=== PATIENT | male | born 1945 | race Two or more races ===

== ENCOUNTER 2024-02-18 11:04 | Inpatient (IN) | payer MEDICARE, OTHER ==
[~2024-02-18] VITALS: Ht 162.6 cm; Wt 58.1 kg
[2024-02-18] MEDS ORDERED: TDAP [DIPH/PERTUSSIS/TET] 0.5 ML VIAL IM ONE (11:37)
[2024-02-18] MEDS: TDAP [DIPH/PERTUSSIS/TET] 0.5 ML VIAL IM ONE (11:55)
[2024-02-18 12:10] LABS: BASOPHILS % (AUTO) 0.3 % (0.0-2.0); EOSINOPHILS % (AUTO) 0.5 % (0.0-6.0); HEMATOCRIT 38 % (39-51); HEMOGLOBIN 12.6 g/dL (13.5-17.5); LYMPHOCYTES # (AUTO) 1.1 K/uL (0.8-4.8); LYMPHOCYTES % (AUTO) 13.6 % (20.0-44.0); MEAN CORPUSCULAR HEMOGLOBIN 31 PG (26.0-33.0); MEAN CORPUSCULAR HGB CONC 33 g/dl (31.0-36.0); MEAN CORPUSCULAR VOLUME 92 fL (80-96); MONOCYTES # (AUTO) 0.6 K/uL (0.1-1.30); MONOCYTES % (AUTO) 7.4 % (2.0-12.0); NEUTROPHILS # (AUTO) 6.6 K/uL (1.8-8.9); NEUTROPHILS % (AUTO) 78.2 % (43.0-81.0); PLATELET COUNT (AUTO) 227 K/uL (150-450); RED BLOOD CELL COUNT(AUTO) 4.11 MIL/uL (4.5-6.0); WHITE BLOOD COUNT (AUTO) 8.4 K/uL (4.3-11.0)
[2024-02-18 12:22] LABS: INR 0.97 (0.91-1.10); PARTIAL THROMBOPLASTIN TIME 24.6 SEC (24.3-34.3)
[2024-02-18 12:24] LABS: ALANINE AMINOTRANSFERASE 24 U/L (12-78); ALBUMIN 2.4 g/dL (3.4-5.0); ALKALINE PHOSPHATASE 118 U/L (46-116); ASPARTATE AMINOTRANSFERASE 17 U/L (15-37); BILIRUBIN,DIRECT 0.2 mg/dL (0.0-0.2); BILIRUBIN,TOTAL 0.6 mg/dL (0.2-1.0); CALCIUM, SERUM 8.3 mg/dL (8.5-10.1); CARBON DIOXIDE 26 mmol/L (21-32); CHLORIDE 103 mmol/L (98-107); GLUCOSE 377 mg/dL (74-106); LIPASE 14 U/L (16-77); POTASSIUM 5.2 mmol/L (3.5-5.1); SODIUM SERUM 133 mmol/L (136-145); TOTAL PROTEIN, SERUM 6.1 g/dL (6.4-8.2); UREA NITROGEN, BLOOD 10 mg/dL (7-18)
[2024-02-18] MEDS ORDERED: HYDR-4077 PO (13:03)
[2024-02-18] MEDS ORDERED: SEMA0.25 SQ (13:03)
[2024-02-18] MEDS ORDERED: AMLO-213 PO (13:03)
[2024-02-18] MEDS ORDERED: HYDR-3976 MT (13:03)
[2024-02-18] MEDS ORDERED: GLIM1TAB18 PO (13:03)
[2024-02-18] MEDS ORDERED: TAMS-12 PO (13:03)
[2024-02-18] MEDS ORDERED: ALBU18HF2 IH (13:03)
[2024-02-18] MEDS ORDERED: METF-442 PO (13:03)
[2024-02-18] MEDS ORDERED: BENA20TA9 PO (13:03)
[2024-02-18] MEDS ORDERED: OXYB10TA30 PO (13:03)
[2024-02-18] MEDS ORDERED: OMEP40CA21 PO (13:03)
[2024-02-18] MEDS ORDERED: ROSU5TAB13 PO (13:03)
[2024-02-18] MEDS ORDERED: MAGNESIUM HYDROXIDE 30 ML UDC PO PRN (15:00)
[2024-02-18] MEDS ORDERED: DEXTROSE 50%-WATER 50 ML DISP.SYRIN IV PRN (15:00)
[2024-02-18] MEDS ORDERED: ONDANSETRON HCL/PF 4 MG/2 ML VIAL IVP PRN (15:00)
[2024-02-18] MEDS ORDERED: Z GUARD REMEDY 4 OZ OINT TP PRN (15:00)
[2024-02-18] MEDS ORDERED: ACETAMINOPHEN 325 MG TABLET PO PRN (15:00)
[2024-02-18 15:14] VITALS: BP 116/65; TEMP 97.8; O2SAT 96
[2024-02-18] MEDS: NICOTINE PATCH (14MG) 14 MG PATCH.TD24 TD SCH (15:38)
[2024-02-18] MEDS: LEVOFLOXACIN (250MG) 250 MG TABLET PO SCH (15:39)
[2024-02-18] MEDS: ENOXAPARIN SODIUM 40 MG/0.4 ML DISP.SYRIN SQ SCH (15:41)
[2024-02-18 15:52] LABS: THYROID STIMULATING HORMONE 0.967 uIU/mL (0.358-3.74)
[2024-02-18 16:00] VITALS: BP 153/74; TEMP 97.8; O2SAT 96
[2024-02-18] MEDS: IV NS 0.9% 1,000 ML BAG IV PRN (16:50)
[2024-02-18] MEDS: INSULIN REGULAR, HUMAN 100 UNIT/ML 3 ML VIAL SQ PRN (17:23)
[2024-02-18] MEDS: BLOOD SUGAR DIAGNOSTIC 1 EACH STRIP IN SCH (17:24)
[2024-02-18 20:00] VITALS: BP 114/61; TEMP 98.2; O2SAT 99
[2024-02-19] VITALS: BP 135/68; TEMP 98; O2SAT 99
[2024-02-19 04:00] VITALS: BP 136/65; TEMP 98.3; O2SAT 99
[2024-02-19] MEDS: IV NS 0.9% 1,000 ML IV PRN (04:34)
[2024-02-19 07:09] LABS: BASOPHILS % (AUTO) 0.4 % (0.0-2.0); EOSINOPHILS # (AUTO) 0.1 K/uL (0.0-0.7); EOSINOPHILS % (AUTO) 1.5 % (0.0-6.0); HEMATOCRIT 33 % (39-51); HEMOGLOBIN 11.4 g/dL (13.5-17.5); LYMPHOCYTES # (AUTO) 2.1 K/uL (0.8-4.8); LYMPHOCYTES % (AUTO) 25.7 % (20.0-44.0); MEAN CORPUSCULAR HEMOGLOBIN 32 PG (26.0-33.0); MEAN CORPUSCULAR HGB CONC 35 g/dl (31.0-36.0); MEAN CORPUSCULAR VOLUME 91 fL (80-96); MONOCYTES # (AUTO) 0.8 K/uL (0.1-1.30); MONOCYTES % (AUTO) 9.5 % (2.0-12.0); NEUTROPHILS # (AUTO) 5.2 K/uL (1.8-8.9); NEUTROPHILS % (AUTO) 62.9 % (43.0-81.0); PLATELET COUNT (AUTO) 216 K/uL (150-450); RED BLOOD CELL COUNT(AUTO) 3.59 MIL/uL (4.5-6.0); RED CELL DISTRIBUTION WIDTH 12.9 % (11.5-15.0); WHITE BLOOD COUNT (AUTO) 8.2 K/uL (4.3-11.0)
[2024-02-19 07:29] LABS: ALANINE AMINOTRANSFERASE 18 U/L (12-78); ALBUMIN 1.9 g/dL (3.4-5.0); ALKALINE PHOSPHATASE 105 U/L (46-116); ASPARTATE AMINOTRANSFERASE 19 U/L (15-37); BILIRUBIN,TOTAL 0.4 mg/dL (0.2-1.0); CALCIUM, SERUM 8.6 mg/dL (8.5-10.1); CARBON DIOXIDE 22 mmol/L (21-32); CHLORIDE 104 mmol/L (98-107); CREATININE 0.8 mg/dL (0.6-1.3); GLUCOSE 127 mg/dL (74-106); MAGNESIUM 1.8 mg/dL (1.8-2.4); PHOSPHORUS 3.6 mg/dL (2.5-4.9); POTASSIUM 3.9 mmol/L (3.5-5.1); SODIUM SERUM 135 mmol/L (136-145); TOTAL PROTEIN, SERUM 5.3 g/dL (6.4-8.2); UREA NITROGEN, BLOOD 12 mg/dL (7-18)
[2024-02-19] MEDS: PANTOPRAZOLE 40 MG TABLET.DR PO SCH (07:47)
[2024-02-19 07:49] LABS: IRON, SERUM 55 ug/dl (50-175); TOTAL IRON BINDING CAPACITY 163 ug/dl (250-450)
[2024-02-19 08:00] VITALS: BP 145/73; TEMP 99.1; O2SAT 99
[2024-02-19 08:01] LABS: CHOLESTEROL 98 mg/dL (<200); FERRITIN 157 ng/mL (8-388); HDL CHOLESTEROL 35 mg/dL (40-60); LDL 43 mg/dL (0-99); THYROID STIMULATING HORMONE 1.139 uIU/mL (0.358-3.74); TRIGLYCERIDES 145 mg/dL (30-150)
[2024-02-19] MEDS: ATORVASTATIN 10 MG TABLET PO SCH (08:47)
[2024-02-19] MEDS: AMLODIPINE BESYLATE 10 MG TABLET PO SCH (08:48)
[2024-02-19] MEDS: TAMSULOSIN 0.4 MG CAP.SR.24H PO SCH (08:52)
[2024-02-19] MEDS: OXYBUTYNIN CHLORIDE ER 5 MG TAB PO SCH (08:55)
[2024-02-19] MEDS ORDERED: BENAZEPRIL HCL 20 MG TABLET PO SCH (09:00)
[2024-02-19 12:00] VITALS: BP 152/68; TEMP 98.6; O2SAT 100
[2024-02-19] MEDS ORDERED: LEVO500T90 PO (13:02)
== END 2024-02-19 15:30 | disposition home or self-care (01) | DRG 74 ==
LOC: ER 11:08 → TELE1 13:20
PROVIDERS: ADMIT Nurse Practitioner Family; ATTEND Nurse Practitioner Family
DX: G90.8 Other disorders of autonomic nervous system (principal); E87.1 Hypo-osmolality and hyponatremia; E44.0 Moderate protein-calorie malnutrition; J21.9 Acute bronchiolitis, unspecified; S09.90XA Unspecified injury of head, initial encounter; I25.10 Atherosclerotic heart disease of native coronary artery without angina pectoris; W19.XXXA Unspecified fall, initial encounter; Y92.9 Unspecified place or not applicable; D64.9 Anemia, unspecified; E11.65 Type 2 diabetes mellitus with hyperglycemia; E87.5 Hyperkalemia; E88.09 Other disorders of plasma-protein metabolism, not elsewhere classified; I10 Essential (primary) hypertension; Z79.4 Long term (current) use of insulin; Z79.84 Long term (current) use of oral hypoglycemic drugs; Z95.1 Presence of aortocoronary bypass graft; Z20.822 Contact with and (suspected) exposure to COVID-19; Z71.6 Tobacco abuse counseling; F17.210 Nicotine dependence, cigarettes, uncomplicated; Z68.22 Body mass index [BMI] 22.0-22.9, adult
CPT/HCPCS: 36415; 70450-TC; 71045-TC; 71250-TC; 72125-TC; 80048-TC; 80053-TC; 80061-TC; 80076-TC; 82728-TC; 82962-TC; 83540-TC; 83690-TC; 83735-TC; 84100-TC; 84439-TC; 84443-TC; 84484-TC; 85025-TC; 85730-TC; 90715; 93307-TC; 97112-TC; 97116-TC; 97530-TC; A4223; G0378; J1650; J1815; J7030

== ENCOUNTER 2024-06-30 10:20 | Emergency (ER) | payer MEDICARE, OTHER ==
[~2024-06-30] VITALS: Ht 160 cm; Wt 66.2 kg
[~2024-06-30 10:20] MED LIST: ALBU18HF2 IH; AMLO-213 PO; BENA20TA9 PO; GLIM1TAB18 PO; HYDR-3976 MT; HYDR-4077 PO; LEVO500T90 PO; METF-442 PO; OMEP40CA21 PO; OXYB10TA30 PO; ROSU5TAB13 PO; SEMA0.25 SQ; TAMS-12 PO
[2024-06-30] MEDS ORDERED: methylPREDNISolone SOD SUCC 125 MG/2ML VIAL ONE (11:58)
[2024-06-30] MEDS ORDERED: IPRATROPIUM NEB FS 0.5 MG/2.5 ML AMPUL.NEB ONE (12:01)
[2024-06-30] MEDS ORDERED: ALBUTEROL FS 2.5 MG/3 ML VIAL.NEB ONE (12:01)
[2024-06-30 12:08] VITALS: O2SAT 95
[2024-06-30] MEDS: ALBUTEROL FS 2.5 MG/3 ML VIAL.NEB CONTNEB ONE (12:08)
[2024-06-30] MEDS: IPRATROPIUM NEB FS 0.5 MG/2.5 ML AMPUL.NEB NEB ONE (12:08)
[2024-06-30] MEDS: methylPREDNISolone SOD SUCC 125 MG/2ML VIAL IV ONE (12:12)
[2024-06-30 12:29] VITALS: O2SAT 100
[2024-06-30 12:31] LABS: BASOPHILS # (AUTO) 0.1 K/uL (0.0-0.2); BASOPHILS % (AUTO) 0.4 % (0.0-2.0); EOSINOPHILS # (AUTO) 0.2 K/uL (0.0-0.7); EOSINOPHILS % (AUTO) 1.6 % (0.0-6.0); HEMATOCRIT 37 % (39-51); HEMOGLOBIN 12.6 g/dL (13.5-17.5); LYMPHOCYTES # (AUTO) 2.1 K/uL (0.8-4.8); LYMPHOCYTES % (AUTO) 16.2 % (20.0-44.0); MEAN CORPUSCULAR HEMOGLOBIN 31 PG (26.0-33.0); MEAN CORPUSCULAR HGB CONC 34 g/dl (31.0-36.0); MEAN CORPUSCULAR VOLUME 92 fL (80-96); MONOCYTES # (AUTO) 1.3 K/uL (0.1-1.30); MONOCYTES % (AUTO) 10.3 % (2.0-12.0); NEUTROPHILS # (AUTO) 9.4 K/uL (1.8-8.9); NEUTROPHILS % (AUTO) 71.5 % (43.0-81.0); PLATELET COUNT (AUTO) 211 K/uL (150-450); RED BLOOD CELL COUNT(AUTO) 4.01 MIL/uL (4.5-6.0); RED CELL DISTRIBUTION WIDTH 14.5 % (11.5-15.0); WHITE BLOOD COUNT (AUTO) 13.1 K/uL (4.3-11.0)
[2024-06-30 12:34] LABS: CALCIUM, SERUM 9.1 mg/dL (8.5-10.1); CARBON DIOXIDE 26 mmol/L (21-32); CHLORIDE 108 mmol/L (98-107); CREATININE 0.7 mg/dL (0.6-1.3); GLUCOSE 189 mg/dL (74-106); POTASSIUM 4.3 mmol/L (3.5-5.1); SODIUM SERUM 142 mmol/L (136-145); UREA NITROGEN, BLOOD 14 mg/dL (7-18)
[2024-06-30 12:38] LABS: ALANINE AMINOTRANSFERASE 29 U/L (12-78); ALBUMIN 2.6 g/dL (3.4-5.0); ALKALINE PHOSPHATASE 93 U/L (46-116); ASPARTATE AMINOTRANSFERASE 18 U/L (15-37); BILIRUBIN,DIRECT 0.2 mg/dL (0.0-0.2); BILIRUBIN,TOTAL 0.7 mg/dL (0.2-1.0); TOTAL PROTEIN, SERUM 6.6 g/dL (6.4-8.2)
[2024-06-30] MEDS ORDERED: FUROSEMIDE 40 MG/4 ML VIAL ONE (13:00)
[2024-06-30] MEDS: FUROSEMIDE 40 MG/4 ML VIAL IV ONE (13:06)
[2024-06-30] MEDS ORDERED: ASPIRIN 325 MG TABLET ONE (13:07)
[2024-06-30] MEDS: ASPIRIN 325 MG TABLET PO ONE (13:19)
[2024-06-30 13:34] VITALS: BP 147/81; TEMP 99.5; O2SAT 100
== END 2024-06-30 13:37 | disposition home or self-care (01) ==
LOC: ER 10:22
DX: R06.02 Shortness of breath (principal); R07.9 Chest pain, unspecified; R05.9 Cough, unspecified; E11.9 Type 2 diabetes mellitus without complications; I10 Essential (primary) hypertension; J44.9 Chronic obstructive pulmonary disease, unspecified; Z79.899 Other long term (current) drug therapy
CPT/HCPCS: 99285; 96374; 71045; 96375; 93005 ×2; 85025; 80048; 80076; 36415; 84484; 83880; 94640; J1940; J2919